=== PATIENT | male | born 1950 | race Caucasian/White ===

== ENCOUNTER 2021-06-28 10:43 | Day surgery (SDC) | payer OTHER ==
[~2021-06-28 10:43] MED LIST: ASPI81CH PO; ATOR40TA PO; IPRAIS; Nitrostat0.4 MG SL; PAZEO2.5 ML; Prilosec Otc20 MG PO; Pseudoephedrine30 MG PO; SERT50 PO; SEVE800; SIMV40 PO; Sudogest30 MG; TRAZ50
--- NOTE | 2021-06-28 17:40 | NUR ---
POST INFUSION CHECK. PT TALKING ON PHONE. NO COMPLAINTS OR REQUESTS
[2021-06-28] MEDS ORDERED: METO50ER PO (17:46)
[2021-06-28] MEDS ORDERED: FISH OIL-VIT D1 EACH PO (17:47)
[2021-06-28] MEDS ORDERED: MINIPRESS1 MG PO (17:47)
[2021-06-28] MEDS ORDERED: VENL150ER PO (17:47)
[2021-06-28] MEDS ORDERED: DOCU100 PO (17:47)
[2021-06-28] MEDS ORDERED: MULVITA PO (17:48)
[2021-06-28] MEDS ORDERED: Flonase 0.05% N16 GM (17:48)
--- NOTE | 2021-06-28 18:06 | NUR ---
PT REPORTED NO S/SX OF REACTION. PT VSS. PT IV OUT WNL. PT AMBULATED OUT OF ROOM WITH STEADY GAIT.
== END 2021-06-28 18:05 | disposition home or self-care (01) ==
LOC: ATC 10:43
DX: U07.1 COVID-19 (principal); I10 Essential (primary) hypertension; E78.5 Hyperlipidemia, unspecified; G47.33 Obstructive sleep apnea (adult) (pediatric); R41.3 Other amnesia; I49.9 Cardiac arrhythmia, unspecified; C61 Malignant neoplasm of prostate; D12.6 Benign neoplasm of colon, unspecified; Z86.73 Personal history of transient ischemic attack (TIA), and cerebral infarction without residual deficits
CPT/HCPCS: 96365; Q0243

== ENCOUNTER 2024-04-28 07:03 | Day surgery (SDC) | payer OTHER ==
[~2024-04-28] VITALS: Ht 182.9 cm; Wt 118.0 kg
[~2024-04-28 07:03] MED LIST changes: +DOCU100 PO; +FISH OIL-VIT D1 EACH PO; +Flonase 0.05% N16 GM; +METO50ER PO; +MINIPRESS1 MG PO; +MULVITA PO; +VENL150ER PO
[2024-04-28] MEDS ORDERED: Ciprofloxacin 0.3% Opth Soln 2.5 ML BTL ONE ×2 (07:10→15:11)
[2024-04-28] MEDS ORDERED: EPINEPhrine HCl 1 MG / ML 30ML Vial ONE (07:10)
[2024-04-28] MEDS ORDERED: Triamcinolone Inj Susp 40 MG / ML 1ML Vial ONE (07:11)
[2024-04-28] MEDS ORDERED: Lactated Ringer's 1,000 ML IV ONE ×2 (07:53→11:54)
--- NOTE | 2024-04-28 09:50 | NUR ---
04/28/24 0949 GEOVANNA WOODWARD PT STATES DISCUSSED AND EXPLAINED ALL RISKS/BENEFITS OF ALL PROCEDURES PRIOR TO SIGNING BOTH WRITTEN CONSENTS. END NOTE ORSC.RDS
[2024-04-28] MEDS ORDERED: FentaNYL Citrate 50 MCG/ML 2 ML Injection ONE ×3 (10:06→13:22)
[2024-04-28] MEDS ORDERED: propofoL 20 ML IV ONE (10:06)
[2024-04-28] MEDS ORDERED: Rocuronium Bromide 10 MG/ML 5ML Injection IV ONE (10:06)
[2024-04-28] MEDS ORDERED: ePHEDrine Sulfate 50 MG/ML 1ML Injection ONE (10:33)
[2024-04-28] MEDS ORDERED: Phenylephrine HCl 10mg/ml 1 ml Vial ONE (10:56)
[2024-04-28] MEDS ORDERED: Atropine Sulfate 0.4 MG/1 ML Vial ONE (11:16)
[2024-04-28] MEDS ORDERED: Metoclopramide HCl 5MG / ML 2ML Vial ONE (11:17)
[2024-04-28] MEDS ORDERED: Ondansetron HCl 2 MG / ML 2ML Vial ONE (11:17)
[2024-04-28] MEDS ORDERED: Dexamethasone Sod Phos 10 MG/ML 1ML VIAL ONE (11:17)
[2024-04-28] MEDS ORDERED: EPINEPhrine HCl 1 MG/ML 1ML Amp XX ONE (11:56)
[2024-04-28] MEDS ORDERED: Lidocaine 1%-Epineph 1:200000 30 ML SDV XX ONE (11:56)
--- NOTE | 2024-04-28 12:01 | NUR ---
04/28/24 1201 Jesus Puga KENALOG 40MG/ML ADDED TO 2.5ML CIPROFLOXACIN TO CREATE A SOLUTION FOR DRESSINGS. LIDOCAINE 4% MIXED 1:1 WITH EPI TO CREATE A LOCAL SOLUTION FOR SOAKING PLEDGETTS DURING CASE. 3MLS OF EPI 1MG/ML ADDED TO FIELS FOR SOAKING PLEDGETTS DURING CASE.
[2024-04-28] MEDS ORDERED: OxyCODONE HCL 5 MG TAB ONE (15:25)
[2024-04-28 15:34] VITALS: BP 109/77
== END 2024-04-28 15:45 | disposition home or self-care (01) ==
LOC: ORSCSDS 07:03
PROVIDERS: Otolaryngology
PROC: 097G8ZZ Dilation of Left Eustachian Tube, Via Natural or Artificial Opening Endoscopic (ICD-10-PCS; principal; 2024-04-28 08:15)
PROC: 0NR50JZ Replacement of Right Temporal Bone with Synthetic Substitute, Open Approach (ICD-10-PCS; principal; 2024-04-28 08:15)
PROC: 097F8ZZ Dilation of Right Eustachian Tube, Via Natural or Artificial Opening Endoscopic (ICD-10-PCS; principal; 2024-04-28 08:15)
DX: H71.91 Unspecified cholesteatoma, right ear (principal); H73.893 Other specified disorders of tympanic membrane, bilateral; H90.6 Mixed conductive and sensorineural hearing loss, bilateral; H69.93 Unspecified Eustachian tube disorder, bilateral; I10 Essential (primary) hypertension; G47.33 Obstructive sleep apnea (adult) (pediatric); Z86.73 Personal history of transient ischemic attack (TIA), and cerebral infarction without residual deficits; Z68.35 Body mass index [BMI] 35.0-35.9, adult; Z79.899 Other long term (current) drug therapy
CPT/HCPCS: A9270; C1726; C1763; J0171; J0461; J1100; J2371; J2405; J2704; J2765; J3010; J3301; J7120